=== PATIENT | female | born 1960 | race Caucasian/White ===

== ENCOUNTER 2017-07-14 03:33 | Emergency (ER) | payer BC ==
[2017-07-14] MEDS ORDERED: predniSONE 20 MG TAB ONE (04:03)
--- NOTE | 2017-07-14 04:06 | EDPHYS ---
Physician Documentation [facility] Name: Shannan Jackson Age: 57 yrs Sex: Female : 1960 Arrival Date: 07/14/2017 Time: 03:40 Bed 2 Private MD: ED Physician Gm Bustos HPI: 07/14 04:02 This 57 yrs old Female presents to ER via Ambulatory with complaints of Rash, tw4 Feet Swelling. 04:02 The patient's rash thought to be caused by an unknown cause. The rash is located on the tw4 right leg and left parish. The rash can be described as macular. Onset: The symptoms/episode began/occurred 3 day(s) ago. Associated signs and symptoms: Pertinent positives: None. Pertinent negatives: None. Severity of symptoms: At their worst the symptoms were moderate in the emergency department the symptoms are unchanged. The patient has not experienced similar symptoms in the past. Historical: - Allergies: 03:52 No Known Allergies; ak1 - Home Meds: 03:52 anastrozole 1 mg Oral tab [Active]; venlafaxine 75 mg Oral cp24 1 cap once daily ak1 [Active]; venlafaxine 37.5 mg Oral tab daily [Active]; unknown antifungal [Active]; - PMHx: 03:52 Cancer, Breast; radiation therapy; Depression; ak1 - PSHx: 03:52 Cholecystectomy; Tubal ligation; Lumpectomy; ak1 - Immunization history:: Adult Immunizations unknown. - Social history:: Smoking status: Patient uses tobacco products, smokes one-half pack cigarettes per day. ROS: 04:02 Constitutional: Negative for fever, chills, and weight loss, Eyes: Negative for injury, tw4 pain, redness, and discharge, Cardiovascular: Negative for chest pain, palpitations, and edema, Respiratory: Negative for shortness of breath, cough, wheezing, and pleuritic chest pain, Abdomen/GI: Negative for abdominal pain, nausea, vomiting, diarrhea, and constipation, Back: Negative for injury and pain, MS/Extremity: Negative for injury and deformity, Neuro: Negative for headache, weakness, numbness, tingling, and seizure. 04:02 Skin: Positive for rash. Exam: 04:02 Constitutional: This is a well developed, well nourished patient who is awake, alert, tw4 and in no acute distress. Head/Face: Normocephalic, atraumatic. Chest/axilla: Normal chest wall appearance and motion. Nontender with no deformity. No lesions are appreciated. Cardiovascular: Regular rate and rhythm with a normal S1 and S2. No gallops, murmurs, or rubs. Normal PMI, no JVD. No pulse deficits. Respiratory: Lungs have equal breath sounds bilaterally, clear to auscultation and percussion. No rales, rhonchi or wheezes noted. No increased work of breathing, no retractions or nasal flaring. Abdomen/GI: Soft, non-tender, with normal bowel sounds. No distension or tympany. No guarding or rebound. No evidence of tenderness throughout. Back: No spinal tenderness. No costovertebral tenderness. Full range of motion. 04:02 Skin: Appearance: normal except for affected area, rash a mild rash is noted, rash can be described as macular, nonspecific, Turgor: is excellent. Vital Signs: 03:52 BP 110 / 78; Pulse 74; Resp 18; Temp 98.1(O); Pulse Ox 98% on R/A; Weight 70.31 kg (R); ak1 Height 5 ft. 4 in. (162.56 cm) (R); Pain 0/10; 03:52 Body Mass Index 26.61 (70.31 kg, 162.56 cm) ak1 MDM: 03:48 Patient medically screened. tw4 04:02 Data reviewed: vital signs, nurses notes. Counseling: I had a detailed discussion with 4 the patient and/or guardian regarding: the historical points, exam findings, and any diagnostic results supporting the discharge/admit diagnosis. Special discussion: I discussed with the patient/guardian in detail that at this point there is no indication for admission to the hospital. It is understood, however, that if the symptoms persist or worsen the patient needs to return immediately for re-evaluation. Administered Medications: 04:07 Drug: predniSONE 40 mg Route: PO; lp1 04:24 Follow up: Response: No adverse reaction lp1 Disposition: 07/14/17 04:05 Discharged to Home. Impression: Dermatitis, unspecified. - Condition is Stable. - Discharge Instructions: Rash. - Prescriptions for Medrol (Owen) 4 mg Oral Tablets, Dose Pack - take 1 tablet by ORAL route as directed - follow package instructions; 1 packet. - Medication Reconciliation Form, Thank You Letter, Antibiotic Education, Prescription Opioid Use form. - Follow up: Private Physician; When: As needed; Reason: Recheck today's complaints, Continuance of care, Re-evaluation by your physician. - Problem is new. - Symptoms are unchanged. Signatures: Elsa Mccrary RN RN lp1 Taryn Holbrook RN RN ak1 Gm Bustos MD MD tw4 Corrections: (The following items were deleted from the chart) 04:25 04:05 07/14/2017 04:05 Discharged to Home. Impression: Dermatitis, unspecified. lp1 Condition is Stable. Forms are Medication Reconciliation Form, Thank You Letter, Antibiotic Education, Prescription Opioid Use. Follow up: Private Physician; When: As needed; Reason: Recheck today's complaints, Continuance of care, Re-evaluation by your physician. Problem is new. Symptoms are unchanged. tw4
--- NOTE | 2017-07-14 04:06 | ER ---
Nurse's Notes [facility] Name: Shannan Jackson Age: 57 yrs Sex: Female : 1960 Arrival Date: 07/14/2017 Time: 03:40 Bed 2 Private MD: Diagnosis: Dermatitis, unspecified Presentation: 07/14 03:50 Presenting complaint: Patient states: bilateral ankle swelling and rash to lower legs ak1 since Thursday. Transition of care: patient was not received from another setting of care. Onset of symptoms is unknown. Initial Sepsis Screen: Does the patient meet any 2 criteria? No. Patient's initial sepsis screen is negative. Does the patient have a suspected source of infection? No. Patient's initial sepsis screen is negative. Care prior to arrival: None. 03:50 Method Of Arrival: Ambulatory ak1 03:50 Acuity: ABILIO 4 ak1 Triage Assessment: 03:54 General: Appears in no apparent distress. Behavior is calm, cooperative. Pain: Denies ak1 pain. Historical: - Allergies: 03:52 No Known Allergies; ak1 - Home Meds: 03:52 anastrozole 1 mg Oral tab [Active]; venlafaxine 75 mg Oral cp24 1 cap once daily ak1 [Active]; venlafaxine 37.5 mg Oral tab daily [Active]; unknown antifungal [Active]; - PMHx: 03:52 Cancer, Breast; radiation therapy; Depression; ak1 - PSHx: 03:52 Cholecystectomy; Tubal ligation; Lumpectomy; ak1 - Immunization history:: Adult Immunizations unknown. - Social history:: Smoking status: Patient uses tobacco products, smokes one-half pack cigarettes per day. Screenin:53 Abuse screen: Denies threats or abuse. Denies injuries from another. Nutritional ak1 screening: No deficits noted. Tuberculosis screening: No symptoms or risk factors identified. Fall Risk None identified. Assessment: 03:54 General: Appears in no apparent distress. Behavior is calm, cooperative, appropriate lp1 for age. Pain: Denies pain. Neuro: Level of Consciousness is awake, alert, obeys commands. Cardiovascular: Patient's skin is warm and dry. Edema is 1+ to Bilateral ankles. Respiratory: Respiratory effort is even, unlabored, Respiratory pattern is regular, symmetrical. GI: No signs and/or symptoms were reported involving the gastrointestinal system. : No signs and/or symptoms were reported regarding the genitourinary system. EENT: No signs and/or symptoms were reported regarding the EENT system. Derm: Rash noted that is red, vesicular, on bilateral lower extremities Denies itching, burning, pain. Musculoskeletal: Circulation, motion, and sensation intact. Vital Signs: 03:52 BP 110 / 78; Pulse 74; Resp 18; Temp 98.1(O); Pulse Ox 98% on R/A; Weight 70.31 kg (R); ak1 Height 5 ft. 4 in. (162.56 cm) (R); Pain 0/10; 03:52 Body Mass Index 26.61 (70.31 kg, 162.56 cm) ak1 ED Course: 03:40 Patient arrived in ED. es 03:48 Gm Bustos MD is Attending Physician. tw4 03:50 Triage completed. ak1 03:52 Arm band placed on Patient placed in an exam room, on a stretcher, on pulse oximetry, ak1 Patient notified of wait time. 03:54 Elsa Mccrary, RN is Primary Nurse. lp1 03:54 Patient has correct armband on for positive identification. Placed in gown. Bed in low ak1 position. Call light in reach. Side rails up X 1. Pulse ox on. NIBP on. 04:00 No provider procedures requiring assistance completed. Patient did not have IV access lp1 during this emergency room visit. Administered Medications: 04:07 Drug: predniSONE 40 mg Route: PO; lp1 04:24 Follow up: Response: No adverse reaction lp1 Outcome: 04:05 Discharge ordered by . tw4 04:24 Discharged to home ambulatory. lp1 04:24 Condition: good 04:24 Discharge instructions given to patient, Instructed on discharge instructions, follow up and referral plans. medication usage, Demonstrated understanding of instructions, follow-up care, medications, Prescriptions given X 1. 04:25 Patient left the ED. lp1 Signatures: Lise Mcallister Laura, RN RN lp1 Taryn Holbrook RN RN ak1 Gm Bustos MD MD tw4 Corrections: (The following items were deleted from the chart) 04:00 03:54 Derm: Rash noted that is red, vesicular, Denies itching, burning, pain, lp1 lp1 04:25 03:54 Cardiovascular: Patient's skin is warm and dry. lp1 lp1
== END 2017-07-14 04:25 | disposition home or self-care (01) ==
LOC: ER 03:33
DX: L30.9 Dermatitis, unspecified (principal); F32.9 Major depressive disorder, single episode, unspecified; F17.210 Nicotine dependence, cigarettes, uncomplicated; Z85.3 Personal history of malignant neoplasm of breast
CPT/HCPCS: 99283; J7512